=== PATIENT | female | born 1995 | race Caucasian/White ===

== ENCOUNTER 2018-12-20 00:13 | Emergency (ER) | payer SELFPAY, OTHER | END 2018-12-20 01:57 | disposition home or self-care (01) | LOC: FTE 00:13 | DX: O99.89 Other specified diseases and conditions complicating pregnancy, childbirth and the puerperium (principal); R53.1 Weakness; Z3A.01 Less than 8 weeks gestation of pregnancy | CPT/HCPCS: 82962; 99282 ==

== ENCOUNTER 2019-03-07 01:10 | Emergency (ER) | payer SELFPAY | END 2019-03-07 01:39 | disposition home or self-care (01) | LOC: FTE 01:39 | DX: O99.342 Other mental disorders complicating pregnancy, second trimester (principal); F41.9 Anxiety disorder, unspecified; R06.02 Shortness of breath; Z3A.17 17 weeks gestation of pregnancy | CPT/HCPCS: 93005; 99283-25 ==